=== PATIENT | female | born 1985 | race Hispanic/Latino ===

== ENCOUNTER 2020-07-09 19:37 | Emergency (ER) | payer OTHER, SELFPAY ==
[2020-07-09] MEDS ORDERED: Ibuprofen 400 MG TAB ONE (21:19)
== END 2020-07-09 21:23 | disposition home or self-care (01) ==
LOC: MADERS 19:37
DX: S29.011A Strain of muscle and tendon of front wall of thorax, initial encounter (principal); S40.012A Contusion of left shoulder, initial encounter; V89.2XXA Person injured in unspecified motor-vehicle accident, traffic, initial encounter
CPT/HCPCS: 72072; G0390